=== PATIENT | female | born 1965 | race African-American/Black ===

== ENCOUNTER 2018-02-12 03:45 | Emergency (ER) | payer BC, OTHER ==
[~2018-02-12] VITALS: Ht 170.2 cm; Wt 69.0 kg
[~2018-02-12 03:45] MED LIST: HYDR-4001; ONDA4TAB5; TRAM50TA94
[2018-02-12] MEDS ORDERED: SODIUM CHLORIDE 0.9% 1,000 ML IV ONE (04:01)
[2018-02-12] MEDS ORDERED: ASPIRIN 81MG TABLET PO ONE (04:15)
[2018-02-12 04:17] LABS: BASOPHILS % 0.3 % (0.0-2.0); EOSINOPHILS % 0.7 % (0.0-5.0); HEMATOCRIT. 34.7 % (36.0-48.0); HEMOGLOBIN. 11.3 g/dL (12.0-16.0); LYMPHOCYTES % 44.8 % (20.0-50.0); MEAN CORPUSCULAR HEMOGLOBIN 27.1 pg (28.0-32.0); MEAN CORPUSCULAR VOLUME 83.2 fL (81.0-99.0); MEAN PLATELET VOLUME 8.5 fl (7.4-10.4); MONOCYTES % 7.7 % (2.0-8.0); NEUTROPHILS % 46.5 % (40.0-76.0); PLATELET 246 x1000/uL (130-400); RED BLOOD CELL COUNT 4.17 mill/uL (4.2-5.4); RED CELL DISTRIBUTION WIDTH 13.5 % (11.6-14.6)
[2018-02-12 04:23] LABS: CHLORIDE 106 mEq/L (98-107)
[2018-02-12 04:27] LABS: D-DIMER 0.35 mg/L FEU (<0.50); ETHANOL BLOOD < 10 mg/dL; INR 1.1; PROTHROMBIN TIME 11.6 sec (9.4-11.6)
[2018-02-12 06:10] VITALS: BP 135/78
[2018-02-12 07:50] LABS: *AMPHETAMINES SCREEN URINE NEGATIVE (NEGATIVE)
[2018-02-12 07:53] LABS: *BARBITURATES SCREEN URINE NEGATIVE (NEGATIVE); *BENZODIAZEPINES SCREEN URINE NEGATIVE (NEGATIVE)
[2018-02-12 07:54] LABS: *COCAINE SCREEN URINE NEGATIVE (NEGATIVE)
[2018-02-12 07:59] LABS: METHADONE URINE SCREEN NEGATIVE (NEGATIVE)
[2018-02-12 08:03] LABS: OPIATES URINE SCREEN NEGATIVE (NEGATIVE)
[2018-02-12 08:09] LABS: CANNABINOID URINE SCREEN NEGATIVE (NEGATIVE); PHENCYCLIDINE URINE SCREEN NEGATIVE (NEGATIVE)
== END 2018-02-12 06:30 | disposition home or self-care (01) ==
LOC: ER 03:45
DX: R00.2 Palpitations (principal); R20.2 Paresthesia of skin; F41.9 Anxiety disorder, unspecified; R06.02 Shortness of breath; Z88.0 Allergy status to penicillin; Z88.2 Allergy status to sulfonamides; Z79.899 Other long term (current) drug therapy
CPT/HCPCS: 36415; 71045; 80053; 80305; 82962; 83690; 83735; 83880; 84443; 84484; 85025; 85379; 85610; 93005; 96360; 96361; 99285; G0482; J7030; Z7610